=== PATIENT | female | born 1985 | race Caucasian/White ===

== ENCOUNTER 2016-05-09 02:01 | Emergency (ER) | payer OTHER ==
[2016-05-09 02:25] VITALS: RESP 16; O2SAT 97
[2016-05-09 02:54] LABS: COLOR RED; LEUKOCYTE ESTERASE,URINE 2+ (NEGATIVE); NITRITE,URINE NEGATIVE (NEGATIVE)
[2016-05-09 03:03] LABS: BACTERIA 1+ /hpf (NONE SEEN); RBC,URINE 50-182 /hpf (0-3); WBC,URINE 50-182 /hpf (0-3)
--- NOTE | 2016-05-09 05:26 | EDPHY ---
H & P Stated Complaint: c/o cramping bleeding while on period Time Seen by Provider: 05/09/16 03:51 HPI/ROS: HPI The patient presents with several hours of cramping, severe, lower abdominal pain. She took ibuprofen and went to bed, however awoke with severe pain. This is associated with vaginal bleeding, the patient is on her menses currently. She occasionally does have similar pain, however this is more severe. She does not have any vaginal discharge or fever. She does have an IUD in place.. REVIEW OF SYSTEMS Constitutional: No fever, no chills. Eyes: No discharge. ENT: No sore throat. Cardiovascular: No chest pain, no palpitations. Respiratory: No cough, no shortness of breath. Gastrointestinal: See HPI Genitourinary: No hematuria. Musculoskeletal: No back pain. Skin: No rashes. Neurological: No headache. PMHx: Asthma, history of aseptic meningitis Soc Hx: House with roommates, denies drug use PHYSICAL General Appearance: Alert, no distress Eyes: Pupils equal and round no pallor or injection ENT, Mouth: Mucous membranes moist Respiratory: There are no retractions, lungs are clear to auscultation Cardiovascular: Regular rate and rhythm Gastrointestinal: Abdomen is soft with tenderness in both lower quadrants Neurological: A&O, moves all extremities Skin: Warm and dry, no rashes Musculoskeletal: Neck is supple non tender Extremities: symmetrical, full range of motion Psychiatric: Patient is oriented X 3, there is no agitation Source: Patient Exam Limitations: No limitations - Personal History Tetanus Vaccine Date: 2008 - Medical/Surgical History Hx Asthma: Yes Hx Chronic Respiratory Disease: No Hx Diabetes: No Hx Cardiac Disease: No Hx Renal Disease: No Hx Cirrhosis: No Hx Alcoholism: No Hx HIV/AIDS: No Hx Splenectomy or Spleen Trauma: No Other PMH: asthma, wisdom teeth extraction, IUD placed, viral meningitis - Social History Smoking Status: Never smoked Constitutional: Initial Vital Signs Temperature (C) 36.5 C 05/09/16 02:22 Heart Rate 70 05/09/16 02:22 Respiratory Rate 16 05/09/16 02:22 Blood Pressure 118/70 05/09/16 02:22 O2 Sat (%) 97 05/09/16 02:22 O2 Delivery Mode Room Air Allergies/Adverse Reactions: No Known Allergies Allergy (Verified 05/09/16 02:25) Home Medications: Medication Instructions Recorded Aspirin EC [Aspirin EC 81 mg (*)] 81 mg PO DAILY #0 tab 02/02/14 Albuterol 05/09/16 Medical Decision Making - Diagnostics Imaging: Pelvic ultrasound is normal with no acute findings, discussed with Dr. William of Radiology. Differential Diagnosis: This is a 30-year-old healthy female with IUD in place who presents with lower abdominal pain with vaginal bleeding. Differential diagnosis includes ovarian cyst, ovarian torsion, IUD malposition. In the emergency room, the patient declined any pain medication. Ultrasound was obtained and was normal except for slightly low ID. I doubt this is the cause of any of her symptoms. She felt better over time. I think she may be having pain associated with her menses. She felt well enough to go home and was discharged. I have encouraged her to follow up with OBGYN. Departure - Departure Disposition: Home, Routine, Self-Care Clinical Impression: Lower abdominal pain Condition: Good Instructions: Pelvic Pain in Women (ED) Referrals: NONE *PRIMARY CARE P,. [Primary Care Provider] - As per Instructions
[2016-05-09 06:06] VITALS: BP 119/73; PULSE 73; TEMP 98.1
== END 2016-05-09 06:06 | disposition home or self-care (01) ==
DX: R10.31 Right lower quadrant pain (principal); R10.32 Left lower quadrant pain; J45.909 Unspecified asthma, uncomplicated; N93.8 Other specified abnormal uterine and vaginal bleeding; Z79.82 Long term (current) use of aspirin